=== PATIENT | male | born 1960 | race Caucasian/White ===

== ENCOUNTER 2020-02-17 11:51 | Day surgery (SDC) | payer OTHER, SELFPAY ==
[2020-02-16 12:52] VITALS: BMI 36.6
--- NOTE | 2020-02-16 14:16 | HO.ANESPROP2 ---
Documented by User: Yany Jaquez 02/16/20 14:17 HPI - Anesthesia Eval Consult details Narrative: 59yo M for Colonoscopy [facility] Past Medical History Medical History Atrial fibrillation Elevated cholesterol Hypertension Surgical History Surgical History History of hernia surgery Social History Social History Smoking Status: Never smoker Second Hand Smoke Exposure: No Use of substances other than those prescribed or required for medical reasons: No Advance Directives: No Advance Directives Information Provided: No Advance Directives on File: No Meds Allergies Allergy/AdvReac Type Severity Reaction Status Date / Time No Known Allergies Allergy Verified 02/16/20 14:17 Home Medications Medication Instructions Recorded Confirmed Type atorvastatin 1 tab PO DAILY 02/16/20 02/16/20 History diltiazem HCl 1 cap PO DAILY 02/16/20 02/16/20 History lisinopril 1 tab PO DAILY 02/16/20 02/16/20 History metoprolol tartrate 1 tab PO BID 02/16/20 02/16/20 History metoprolol tartrate 1.5 tab PO BID 02/16/20 02/16/20 History rivaroxaban [Xarelto] 1 tab PO DAILY 02/16/20 02/17/20 History Exam Exam Date and Time: February 16, 2020 1416 Height,Weight and Vital Signs: Height 5 ft 7 in Weight 106.141 kg Assessment and Plan Assessment Anesthesia Assessment: Chart Reviewed Documented by User: Dionne Jarvis 02/17/20 14:58 [facility] Past Medical History Medical History Atrial fibrillation Elevated cholesterol Hypertension Surgical History Surgical History History of hernia surgery Social History Social History Smoking Status: Never smoker Second Hand Smoke Exposure: No Use of substances other than those prescribed or required for medical reasons: No Advance Directives: No Advance Directives Information Provided: No Advance Directives on File: No Meds Allergies Allergy/AdvReac Type Severity Reaction Status Date / Time No Known Allergies Allergy Verified 02/16/20 14:17 Home Medications Medication Instructions Recorded Confirmed Type atorvastatin 1 tab PO DAILY 02/16/20 02/16/20 History diltiazem HCl 1 cap PO DAILY 02/16/20 02/16/20 History lisinopril 1 tab PO DAILY 02/16/20 02/16/20 History metoprolol tartrate 1 tab PO BID 02/16/20 02/16/20 History metoprolol tartrate 1.5 tab PO BID 02/16/20 02/16/20 History rivaroxaban [Xarelto] 1 tab PO DAILY 02/16/20 02/17/20 History Exam Airway Mallampati Class: II TM Dist: >3cm Neck ROM: Full Denture: Upper Heart: RRR Lungs: CTABL Assessment and Plan Assessment Anesthesia Assessment: Anesthesia Plan Discussed (Pt with significant T wave inversion, unable to obtain recent EKG sent to ER for evaluation), Smoking Cess. 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
--- NOTE | 2020-02-17 | ECG_ITS ---
Test Reason : RHYTHM CHANGE Blood Pressure : / mmHG Vent. Rate : 062 BPM Atrial Rate : 053 BPM P-R Int : 000 ms QRS Dur : 084 ms QT Int : 532 ms P-R-T Axes : 000 043 200 degrees QTc Int : [address] & Marked T wave abnormality, consider anterolateral ischemia Prolonged QT Abnormal ECG When compared with ECG of 23-MAR-2013 15:33, Vent. rate has decreased BY 79 BPM T wave inversion more evident in Lateral leads Referred By: Dionne Jarvis Electronically Signed By:ALAN MATHIAS MD
--- NOTE | 2020-02-17 07:36 | MHC.SHP ---
Pre-Procedural Eval Section B Chief Complaint: screening Details of Present Illness: screening, FH colon ca Relevant Family History (Specify if Yes): Yes Relevant Social History: None Present Medications: see Short Stay Collaborative assessment Medical History: Significant History (HTN, Afib) History of Previous Operations: Relevant previous surgery/procedure and date(s) Allergies: Allergies Allergy/AdvReac Type Severity Reaction Status Date / Time No Known Allergies Allergy Verified 02/16/20 14:17 Review of Systems Sugical H&P ROS: Negative: Constitution, Cardiovascular, Respiratory, Neurological, Psychiatric, Hem-Onc, Allergic/Immunologic, Gastrointestinal, Genitourinary, Musculoskeletal, Integumentary, Endocrine and Eyes/Ears/Nose/Throat Exam Surgical H&P Exam: Normal: HEENT, Normal: Heart, Normal: Lungs, Normal: Extremities, Normal: Abdomen, Normal: Skin and Normal: Neurological Plan Diagnosis/Plan: Unchanged Patient has been examined and remains a candidate for the planned procedure
[2020-02-17 12:07] VITALS: BP 135/83; PULSE 82; RESP 18; TEMP 36.4; O2SAT 95
[2020-02-17] MEDS: Lactated Ringers 1,000 ML 100 ML IVCONT (12:23)
--- NOTE | 2020-02-17 12:25 | PC.NURSE ---
ekg ordered by dr rios ? depression
[2020-02-17 13:12] VITALS: BP 142/84; PULSE 65; RESP 18; TEMP 36.9; O2SAT 95; BMI 36.9
--- NOTE | 2020-02-17 13:18 | XR_ITS ---
EXAMINATION: XR CHEST CLINICAL INFORMATION: Weakness. COMPARISON: None TECHNIQUE: Frontal view of the chest was obtained. FINDINGS: Both lungs are fairly well-expanded and clear of acute process. The heart size is enlarged. Pulmonary vascularity is normal. No gross bony abnormality seen. XR/XR chest 1V IMPRESSION: Mild cardiomegaly. No acute process seen
--- NOTE | 2020-02-17 13:21 | ED.GENADULT ---
HPI - General Adult General Chief complaint: General Medical Time Seen by Provider: 02/17/20 13:12 Source: patient, old records reviewed and other (anesthesia/pre-op team) Mode of arrival: other (stretcher) Limitations: no limitations History of Present Illness HPI narrative: 59-year-old male with a past medical history of AFib on Xarelto, high blood pressure, high cholesterol here with abnormal EKG. The patient tells me he was doing a screening colonoscopy today and while he was in preop he had EKG which was abnormal per OR staff and he was referred to the emergency department. The patient denies any chest pain, shortness of breath, cough, weakness, leg swelling. He tells me he has been feeling well for the last few weeks with no symptoms. He is followed by Dr. Tenisha george veneer jointer. Last echo 09/2019 unremarkable. Onset (ago): day(s) Severity: mild Pain Consistency: constant Relieving factors: none Exacerbating factors: none Associated symptoms: denies other symptoms Treatments prior to arrival: none Related Data Home Medications Medication Instructions Recorded Confirmed atorvastatin 1 tab PO DAILY 02/16/20 02/16/20 diltiazem HCl 1 cap PO DAILY 02/16/20 02/16/20 lisinopril 1 tab PO DAILY 02/16/20 02/16/20 metoprolol tartrate 1 tab PO BID 02/16/20 02/16/20 metoprolol tartrate 1.5 tab PO BID 02/16/20 02/16/20 rivaroxaban [Xarelto] 1 tab PO DAILY 02/16/20 02/17/20 Allergies Allergy/AdvReac Type Severity Reaction Status Date / Time No Known Allergies Allergy Verified 02/16/20 14:17 Review of Systems Review of Systems: Yes all other systems are reviewed and are negative Constitutional: Constitutional: Reports no additional constitutional complaints, Denies body ache(s), Denies chills, Denies fever(s), Denies headache(s) and Denies weakness Eyes: Eyes: Reports no additional eye complaints and Denies change in vision ENT: Reports system reviewed and no additional complaints, except as documented, Denies dizziness, Denies headache(s), Denies nasal congestion, Denies nasal discharge and Denies neck pain Cardiovascular: Cardiovascular: Reports no additional cardiovascular complaints, Denies chest pain, Denies leg edema and Denies dyspnea Respiratory: Respiratory: Reports no additional respiratory complaints, Denies cough and Denies dyspnea Gastrointestinal: Gastrointestinal: Reports no additional gastrointestinal complaints, Denies abdominal pain, Denies diarrhea, Denies nausea and Denies vomiting Genitourinary: Genitourinary: Denies urinary incontinence Musculoskeletal: Musculoskeletal: Reports no additional musculoskeletal complaints, Denies back pain, Denies arthralgias, Denies joint swelling, Denies neck pain, Denies numbness and Denies tingling Integumentary/Breasts: Skin/Breast: Reports system reviewed and no additional complaints, except as docu and Denies rash Neurologic: Reports system reviewed and no additional complaints, except as documented, Denies Abnormal speech present, Denies dizziness, Denies headache(s), Denies numbness, Denies tingling and Denies weakness PMFSH Past Medical History Attestation statement: The following information was validated with the patient. Source: old records reviewed and nursing notes reviewed Medical History Atrial fibrillation Elevated cholesterol Hypertension Surgical History History of hernia surgery Social History Social History Smoking Status: Never smoker Second Hand Smoke Exposure: No Use of substances other than those prescribed or required for medical reasons: No Advance Directives: No Advance Directives Information Provided: No Advance Directives on File: No Physical Exam Vital Signs: Vital Signs: Vital Signs Temp Pulse Resp BP Pulse Ox 02/17/20 14:27 64 14 136/82 95 02/17/20 13:12 98.4 F 65 18 142/84 H 95 02/17/20 12:07 97.6 F 82 18 135/83 95 Body Mass Index 36.9 Const: General: cooperative, healthy appearing, comfortable and no acute distress Orientation/consciousness: patient oriented x3 Limitations: no limitations HENMT: Head: Yes normal to inspection Ears: hearing grossly normal bilaterally General nose exam: Normal external nose present Face and sinus: Yes normal facial exam Mouth: Normal oral and palatal mucosa present Throat: Yes posterior oropharynx normal Eyes: General: appearance normal, both eyes and all related structures Pupils: Equal, round and reactive pupils present Neck: Neck: Yes normal visual inspection Chest: Chest palpation & inspection: normal inspection of the chest Resp: Effort & Inspection: normal respiratory effort Auscultation: clear to auscultation bilaterally Cardio: Rate: regular rate Rhythm: regular rhythm Peripheral pulses: Peripheral pulses 2+ throughout GI: Inspection: Yes normal to inspection Palpation (GI): Soft to palpation and nontender Auscultation: normal bowel sounds Back/Spine/Pelvis: Thoracic/Lumbar Spine: thoracic and lumbar spine normal to inspection Skin: General skin exam: no rashes or lesions noted Neuro: General: patient oriented x3, no focal motor deficits and normal sensation to monofilament Cranial nerves: Yes Equal, round and reactive pupils present Cognition (Neuro): normal cognition Speech: No Abnormal speech present Gait exam (Neuro): Normal gait present Motor exam (neuro): 5/5 motor strength present throughout Extrem: General: Yes normal to inspection Course Course Course Narrative: 59-year-old male here with abnormal EKG from preop. Patient was scheduled for an outpatient colonoscopy this morning. He completed a colonoscopy prep last night. He has no complaints of chest pain, shortness of breath today or in the past few weeks. His EKG shows AFib with a rate of 62 with T-wave inversions V2 through V6. He does have a history of AFib. These inversions appear new when compared to EKG from 03/23/2013. Will check labs including electrolytes, troponin, EKG and chest x-ray. 1446- I was able to get the EKG from Dr. Steven office. EKG looks unchanged when compared to today with the exception of there is a solitary new depression in V2 which is not there when compared from the EKG from June 24, 2019. I spoke to Dr. Steven. As long as the patient has no symptoms and feels well plan to continue with procedure. These are not new EKG findings today. Discussed with OR team and patient. Plan for discharge from ED and back to pre-op for surgical procedure. Labs reviewed and unremarkable. CXR negative for underlying process. Medical Decision Making Lab Data Result diagrams: 02/17/20 14:34 02/17/20 14:34 Labs: Lab Results 02/17/20 02/17/20 02/17/20 Range/Units 14:34 14:34 14:34 WBC 8.0 (4.8-10.8) X10*3/uL RBC 4.52 L (4.60-5.80) X10*6/uL Hgb 15.1 (14.0-18.0) g/dl Hct 45.0 (42-52) % MCV 99.6 H (80-98) fL MCH 33.4 H (27.0-33.0) pg MCHC 33.6 (31.0-36.0) g/dl RDW 12.7 (11.0-16.0) % Plt Count 174 (160-400) X10*3/uL MPV 11.4 (9.4-12.4) fL Immature Gran % (Auto) 0.1 (0.0-0.4) % Neut % (Auto) 70.3 (45-73) % Lymph % (Auto) 21.0 (20-40) % [place] % (Auto) 7.5 (2-11) % Eos % (Auto) 1.0 (0-4) % Baso % (Auto) 0.1 (0-2) % Lymph # (Auto) 1.7 (1.2-4.9) X10*3/uL [place] # (Auto) 0.6 (0.1-1.2) X10*3/uL Eos # (Auto) 0.1 (0.0-0.4) X10*3/uL Baso # (Auto) 0.0 (0.0-0.2) X10*3/uL Abs Immat Gran (auto) 0.01 (0.00-0.03) X10*3/uL Absolute Neuts (auto) 5.6 (2.0-8.3) X10*3/uL Absolute Nucleated RBC 0.000 (0.0-0.012) X10*3/uL Nucleated RBC % (auto) 0.0 (0.0-0.2) /100WBC PT 12.6 (10.8-13.0) SEC INR 1.1 (0.9-1.1) Sodium 140 (135-145) mmol/L Potassium 5.0 (3.3-5.1) mmol/l Chloride 105 (96-108) mmol/L Carbon Dioxide 27 (22-29) mmol/L Anion Gap 13 (12-20) BUN 11 (9-16) mg/dL Creatinine 1.14 (0.5-1.4) mg/dL Estim Creat Clear Calc 81.3 Estimated GFR > 60 Random Glucose 103 (60-115) mg/dL Calcium 9.0 (8.4-10.2) mg/dL Magnesium 2.1 (1.6-2.6) mg/dL Total Bilirubin 1.4 H (0.0-1.0) mg/dL Direct Bilirubin 0.5 (0.0-0.5) mg/dL AST 25 (5-37) U/L ALT 28 (0-40) U/L Alkaline Phosphatase 79 (39-117) U/L Troponin I High Sens (<3.5-35.0) ng/L Total Protein 6.9 (6.5-8.0) g/dL Albumin 4.4 (3.5-5.0) g/dL 02/17/20 02/17/20 Range/Units 14:34 14:34 WBC (4.8-10.8) X10*3/uL RBC (4.60-5.80) X10*6/uL Hgb (14.0-18.0) g/dl Hct (42-52) % MCV (80-98) fL MCH (27.0-33.0) pg MCHC (31.0-36.0) g/dl RDW (11.0-16.0) % Plt Count (160-400) X10*3/uL MPV (9.4-12.4) fL Immature Gran % (Auto) (0.0-0.4) % Neut % (Auto) (45-73) % Lymph % (Auto) (20-40) % [place] % (Auto) (2-11) % Eos % (Auto) (0-4) % Baso % (Auto) (0-2) % Lymph # (Auto) (1.2-4.9) X10*3/uL [place] # (Auto) (0.1-1.2) X10*3/uL Eos # (Auto) (0.0-0.4) X10*3/uL Baso # (Auto) (0.0-0.2) X10*3/uL Abs Immat Gran (auto) (0.00-0.03) X10*3/uL Absolute Neuts (auto) (2.0-8.3) X10*3/uL Absolute Nucleated RBC (0.0-0.012) X10*3/uL Nucleated RBC % (auto) (0.0-0.2) /100WBC PT (10.8-13.0) SEC INR (0.9-1.1) Sodium (135-145) mmol/L Potassium (3.3-5.1) mmol/l Chloride (96-108) mmol/L Carbon Dioxide (22-29) mmol/L Anion Gap (12-20) BUN (9-16) mg/dL Creatinine (0.5-1.4) mg/dL Estim Creat Clear Calc Estimated GFR Random Glucose (60-115) mg/dL Calcium 9.3 (8.4-10.2) mg/dL Magnesium (1.6-2.6) mg/dL Total Bilirubin (0.0-1.0) mg/dL Direct Bilirubin (0.0-0.5) mg/dL AST (5-37) U/L ALT (0-40) U/L Alkaline Phosphatase (39-117) U/L Troponin I High Sens 8.5 (<3.5-35.0) ng/L Total Protein (6.5-8.0) g/dL Albumin (3.5-5.0) g/dL Imaging Data Chest x-ray: Radiologist's impression: EXAMINATION: XR CHEST CLINICAL INFORMATION: Weakness. COMPARISON: None TECHNIQUE: Frontal view of the chest was obtained. FINDINGS: Both lungs are fairly well-expanded and clear of acute process. The heart size is enlarged. Pulmonary vascularity is normal. No gross bony abnormality seen. XR/XR chest 1V IMPRESSION: Mild cardiomegaly. No acute process seen ECG Data Attestation: I personally reviewed and interpreted this ECG as follows: Interpretation: patient is in AFib with a rate of 62 he has inverted T-waves in leads V2, V3, V4, V5, V6. NO ST elevations. Worsened when compared to EKG 03/23/13 Discharge Plan Discharge Patient Disposition: Home, Self-Care Discharge Medications: No Action atorvastatin 40 mg tablet 1 tab PO DAILY RF: 0 metoprolol tartrate 100 mg tablet 1 tab PO BID RF: 0 lisinopril 20 mg tablet 1 tab PO DAILY RF: 0 diltiazem HCl 300 mg capsule,extended release 24 hr 1 cap PO DAILY RF: 0 metoprolol tartrate 50 mg tablet 1.5 tab PO BID RF: 0 Xarelto 20 mg tablet 1 tab PO DAILY RF: 0 Patient Instructions: A-fib (Atrial Fibrillation) (ED)
--- NOTE | 2020-02-17 13:22 | PC.NURSE ---
02/17/[address] lazaro rhythm changes. ekg ordered pt denies c/o denies sob pwd vss. 02/17/2020 1220 pt denies c/p ekg completed denies sob, call to dr noe office for recent ekg and echo which patient sts had 6mths ago. 148/84, 70, 18 96 ra. 02/17/[address] MOSS [address] DR LAZARO AT BEDSIDE PT DENIES PAIN PWD DENIES SOB RHYTHMS REMAINS THE SAME PATIENT ASYMPTOMATIC
--- NOTE | 2020-02-17 13:28 | PC.NURSE ---
FEB 17, 2020 1255 PT WILL GO TO ED SILVA C/P PWD NURSES TO NURSE AND DR MOSS SPOKE TO ED PHYSICIAN. PT AWARE OF PLAN OF CARE DR LAZARO SPOKE TO SON CONCERNING PT CARE PLAN, PT ALSO AWARE. STS HE FEELS FINE. PT TO ED 1300 VITAL SIGNS PRIOR 140/74-75 [id number] NO PAIN. PT TRANFERRED WITH TWO RN ON A MONITOR
[2020-02-17 14:27] VITALS: BP 136/82; PULSE 64; RESP 14; O2SAT 95
--- NOTE | 2020-02-17 14:30 | PC.NURSE ---
PT REPORTS NO PAIN AND NO SOB HE REMAINS IN A NS ON THE MONITOR AWAITING LABS
[2020-02-17 14:40] LABS: MANUAL DIFF FLAG NO
[2020-02-17 14:41] LABS: Basophils Percent Auto 0.1 % (0-2); Eosinophils Absolute Auto 0.1 X10*3/uL (0.0-0.4); Hemoglobin 15.1 g/dl (14.0-18.0); Imm Gran Abs Auto 0.01 X10*3/uL (0.00-0.03); Imm Gran Pct Auto 0.1 % (0.0-0.4); Lymphocytes Absolute Auto 1.7 X10*3/uL (1.2-4.9); Mean Corpuscular HGB Conc 33.6 g/dl (31.0-36.0); Mean Corpuscular Hemoglobin 33.4 pg (27.0-33.0); Mean Corpuscular Volume 99.6 fL (80-98); Mean Platelet Volume 11.4 fL (9.4-12.4); Monocytes Absolute Auto 0.6 X10*3/uL (0.1-1.2); Monocytes Percent Auto 7.5 % (2-11); Neutrophils Absolute Auto 5.6 X10*3/uL (2.0-8.3); Neutrophils Percent Auto 70.3 % (45-73); Platelet Count 174 X10*3/uL (160-400); Red Blood Count 4.52 X10*6/uL (4.60-5.80); Red Cell Distribution Width 12.7 % (11.0-16.0)
[2020-02-17 14:46] LABS: INTERNATIONAL NORM RATIO 1.1 (0.9-1.1); Prothrombin Time 12.6 SEC (10.8-13.0)
[2020-02-17 14:58] LABS: Calcium 9.3 mg/dL (8.4-10.2)
[2020-02-17 15:05] LABS: Alanine Aminotransferase 28 U/L (0-40); Albumin Level 4.4 g/dL (3.5-5.0); Alkaline Phosphatase 79 U/L (39-117); Anion Gap 13 (12-20); Aspartate Amino Transferase 25 U/L (5-37); Bilirubin Direct 0.5 mg/dL (0.0-0.5); Bilirubin Total 1.4 mg/dL (0.0-1.0); Blood Urea Nitrogen 11 mg/dL (9-16); Carbon Dioxide 27 mmol/L (22-29); Chloride 105 mmol/L (96-108); Creatinine Clr Calc Pharmacy 81.3; Estimated Glomerular Filt Rate > 60; Glucose Random 103 mg/dL (60-115); Magnesium 2.1 mg/dL (1.6-2.6); Sodium 140 mmol/L (135-145); Total Protein 6.9 g/dL (6.5-8.0)
[2020-02-17 15:12] LABS: Troponin-I High Sensitivity 8.5 ng/L (<3.5-35.0)
--- NOTE | 2020-02-17 15:14 | PC.NURSE ---
PT WAS BROUGHT BACK TO THE OR FOR SCHEDULED PROCEDURE
[2020-02-17 15:55] VITALS: BP 110/50; PULSE 68; RESP 18; TEMP 37.1; O2SAT 95
[2020-02-17 16:10] VITALS: BP 121/65; PULSE 71; RESP 18; O2SAT 96
[2020-02-17 16:23] VITALS: PULSE 67; RESP 20; O2SAT 97
--- NOTE | 2020-02-17 21:20 | OP_ITS ---
SURGEON: Matty Aleman MD INDICATIONS: Colon cancer screening and family history of colon cancer. PREOPERATIVE DIAGNOSIS: POSTOPERATIVE DIAGNOSIS: PROCEDURE PERFORMED: Colonoscopy to the terminal ileum with snare polypectomy and biopsy. ESTIMATED BLOOD LOSS: COMPLICATIONS: ANESTHESIA: ASSISTANTS: SPECIMENS: MEDICATIONS: Monitored anesthesia care. DESCRIPTION OF PROCEDURE: History and physical performed. The risks and benefits of the procedure were explained to the patient. Informed consent was obtained. The patient was placed in the left lateral decubitus position. A digital rectal exam was performed and was found to be normal. The Olympus pediatric video colonoscope was introduced into the rectum and advanced to the cecum without difficulty. The cecum was identified by transillumination, palpation, and identification of ileocecal valve. Examination was performed and the scope was removed. He tolerated the procedure well and was taken to recovery area in stable condition. FINDINGS: The terminal ileum was normal. The visualized colonic mucosa was normal. In the terminal ileum, there was a focal area of nodular lymphoid hyperplasia measuring approximately 2 mm. A total of 4 colon polyps were identified and removed. The first was located at 70 cm from the anal verge. It was removed with biopsy forceps measuring less than 5 mm. Three others were at 60, 50, and 20 cm. All measured less than 10 mm and were removed with a snare. No other polyps were identified. There was mild sigmoid diverticulosis. Retroflexed examination showed small internal hemorrhoids. IMPRESSION: Colon polyps. RECOMMENDATION: Follow up the biopsy results. MD KRISTINA Lucas/VINNIE / [id number]
== END 2020-02-17 23:59 | disposition home or self-care (01) ==
LOC: HO.SSS 12:30 → HO.ED 13:12 → HO.SSS 15:18
PROVIDERS: Nurse Practitioner Family; PCP Internal Medicine; Visit Provider Internal Medicine Gastroenterology
DX: Z12.11 Encounter for screening for malignant neoplasm of colon (principal); Z80.0 Family history of malignant neoplasm of digestive organs; D12.4 Benign neoplasm of descending colon; D12.5 Benign neoplasm of sigmoid colon; K57.30 Diverticulosis of large intestine without perforation or abscess without bleeding; K64.8 Other hemorrhoids; I10 Essential (primary) hypertension; R94.31 Abnormal electrocardiogram [ECG] [EKG]; R53.1 Weakness; I48.91 Unspecified atrial fibrillation; I51.7 Cardiomegaly; E78.00 Pure hypercholesterolemia, unspecified; Z79.01 Long term (current) use of anticoagulants; Z79.899 Other long term (current) drug therapy
CPT/HCPCS: 45385; 45380; 36415; 71045; 80048; 80076; 82310; 83735; 84484; 85025; 85610; 88305; 93005

== ENCOUNTER 2020-03-17 16:23 | Emergency (ER) | payer OTHER, SELFPAY ==
[2020-03-17 16:36] VITALS: BP 165/97; PULSE 95; RESP 16; TEMP 36.7; O2SAT 98; BMI 38.4
[2020-03-17 18:40] VITALS: PULSE 91; RESP 16
[2020-03-17 19:28] VITALS: BP 173/105; PULSE 99
[2020-03-17] MEDS: Metoprolol Tartrate 5 MG/5 ML VIAL IVPUSH (19:28)
[2020-03-17 19:33] VITALS: BP 153/111; PULSE 104; RESP 18
[2020-03-17 19:41] VITALS: BP 157/93; PULSE 99; RESP 18
[2020-03-17 19:58] LABS: MANUAL DIFF FLAG NO
[2020-03-17 20:10] LABS: Basophils Percent Auto 0.1 % (0-2); Eosinophils Absolute Auto 0.1 X10*3/uL (0.0-0.4); Eosinophils Percent Auto 1.2 % (0-4); Hematocrit 43.5 % (42-52); Hemoglobin 14.6 g/dl (14.0-18.0); Imm Gran Abs Auto 0.01 X10*3/uL (0.00-0.03); Imm Gran Pct Auto 0.1 % (0.0-0.4); Lymphocytes Absolute Auto 1.8 X10*3/uL (1.2-4.9); Lymphocytes Percent Auto 21.9 % (20-40); Mean Corpuscular HGB Conc 33.6 g/dl (31.0-36.0); Mean Corpuscular Volume 98.2 fL (80-98); Mean Platelet Volume 12.4 fL (9.4-12.4); Monocytes Absolute Auto 0.6 X10*3/uL (0.1-1.2); Monocytes Percent Auto 6.7 % (2-11); Neutrophils Absolute Auto 5.8 X10*3/uL (2.0-8.3); Platelet Count 148 X10*3/uL (160-400); Red Blood Count 4.43 X10*6/uL (4.60-5.80); Red Cell Distribution Width 12.2 % (11.0-16.0); White Blood Count 8.3 X10*3/uL (4.8-10.8)
[2020-03-17 20:25] LABS: Anion Gap 13 (12-20); Blood Urea Nitrogen 18 mg/dL (9-16); Carbon Dioxide 27 mmol/L (22-29); Chloride 106 mmol/L (96-108); Creatinine Clr Calc Pharmacy 93.3; Estimated Glomerular Filt Rate > 60; Glucose Random 87 mg/dL (60-115); Potassium 4.2 mmol/l (3.3-5.1); Sodium 142 mmol/L (135-145)
[2020-03-17 20:41] LABS: Troponin-I High Sensitivity 19.9 ng/L (<3.5-35.0)
--- NOTE | 2020-03-17 20:47 | ED.ARRPALP ---
HPI - Arrhythmia/Palpitations General Chief Complaint: Arrhythmia/Palpitations Stated Complaint: increase in afib Time Seen by Provider: 03/17/20 18:54 Source: patient Mode of arrival: ambulatory Limitations: no limitations History of Present Illness HPI narrative: Patient's history of atrial fibrillation which is all the time for last 5 years on Xarelto Cardizem 300 mg daily metoprolol 100 mg twice daily today around 1600 patient noticed palpitation with heart rate in 120s no dizziness no shortness of breath no blurred vision headache when he arrived his heart rate was fluctuating between 96-115 blood pressure 165/97 patient asymptomatic otherwise. No chest pain complaint: rapid heart beat Onset (ago): hour(s) (1600) Duration: constant Severity: mild Context: occurred during rest Arrhythmia history: atrial fibrillation Associated symptoms: denies other symptoms Related Data Home Medications Medication Instructions Recorded Confirmed Xarelto 1 tab PO DAILY 02/16/20 02/17/20 atorvastatin 1 tab PO DAILY 02/16/20 02/16/20 diltiazem HCl 1 cap PO DAILY 02/16/20 02/16/20 lisinopril 1 tab PO DAILY 02/16/20 02/16/20 metoprolol tartrate 1 tab PO BID 02/16/20 02/16/20 metoprolol tartrate 1.5 tab PO BID 02/16/20 02/16/20 Allergies Allergy/AdvReac Type Severity Reaction Status Date / Time No Known Allergies Allergy Verified 02/16/20 14:17 Review of Systems Review of Systems: REVIEW OF SYSTEMS: Pertinent positives and negatives are stated above in the history. GEN: no fevers, chills, fatigue HEENT: no nasal congestion, sore throat, ear pain NEURO: no headache, dizziness, focal weakness PULM: no cough, shortness of breath CV: no chest pain, LE edema ABD: no abdominal pain, nausea, vomiting, diarrhea : no dysuria, urgency, frequency SKIN: no rash ROS otherwise negative x 10 PMFSH Past Medical History Medical History Atrial fibrillation Elevated cholesterol Hypertension Surgical History History of hernia surgery Social History Social History Smoking Status: Never smoker Second Hand Smoke Exposure: No Advance Directives: No Advance Directives Information Provided: No Physical Exam Vital Signs: Vital Signs: Last Vital Signs Temp 98.1 F 03/17/20 16:36 Pulse 99 03/17/20 19:41 Resp 18 03/17/20 19:41 BP 157/93 H 03/17/20 19:41 Pulse Ox 98 03/17/20 16:36 Body Mass Index 38.4 Appearance: Alert. Oriented X3. No acute distress. Eyes: Pupils equal, round and reactive to light. ENT: Pharynx normal. Neck: Normal inspection. Neck supple. CVS: Irregular irregular tachycardia no murmur no gallop . Pulses normal. Respiratory: No respiratory distress. Breath sounds normal. Abdomen: Soft and nontender. Skin: Skin warm and dry. Normal skin color. Normal skin turgor. Extremities: No lower extremity edema. Good range of movement Neuro: Oriented X 3. No motor deficit. No sensory deficit. Course Course Course Narrative: Patient id continues atrial fibrillation on calcium channel yarely and beta yarely rate usually controlled today patient heart rate was fluctuating between 96 and 120 asymptomatic. Case discussed with patient's grain elevator clerk Dr. Steven advised to increase the dose of Lopressor to 150 mg twice daily and will see him in the office MDM - Arrhythmia/Palpitations Differential Diagnosis Differential diagnosis: Likely artial fibrillation Medical Records Attestation: I reviewed the patient's medical records. Lab Data Attestation: I reviewed the patient's lab results. Result diagrams: 03/17/20 19:48 03/17/20 19:48 Labs: Lab Results 03/17/20 03/17/20 03/17/20 Range/Units 19:48 19:48 19:48 WBC 8.3 (4.8-10.8) X10*3/uL RBC 4.43 L (4.60-5.80) X10*6/uL Hgb 14.6 (14.0-18.0) g/dl Hct 43.5 (42-52) % MCV 98.2 H (80-98) fL MCH 33.0 (27.0-33.0) pg MCHC 33.6 (31.0-36.0) g/dl RDW 12.2 (11.0-16.0) % Plt Count 148 L (160-400) X10*3/uL MPV 12.4 (9.4-12.4) fL Immature Gran % (Auto) 0.1 (0.0-0.4) % Neut % (Auto) 70.0 (45-73) % Lymph % (Auto) 21.9 (20-40) % Snyder % (Auto) 6.7 (2-11) % Eos % (Auto) 1.2 (0-4) % Baso % (Auto) 0.1 (0-2) % Lymph # (Auto) 1.8 (1.2-4.9) X10*3/uL Snyder # (Auto) 0.6 (0.1-1.2) X10*3/uL Eos # (Auto) 0.1 (0.0-0.4) X10*3/uL Baso # (Auto) 0.0 (0.0-0.2) X10*3/uL Abs Immat Gran (auto) 0.01 (0.00-0.03) X10*3/uL Absolute Neuts (auto) 5.8 (2.0-8.3) X10*3/uL Absolute Nucleated RBC 0.000 (0.0-0.012) X10*3/uL Nucleated RBC % (auto) 0.0 (0.0-0.2) /100WBC Hold Blue Top SEE NOTE Sodium (135-145) mmol/L Potassium (3.3-5.1) mmol/l Chloride (96-108) mmol/L Carbon Dioxide (22-29) mmol/L Anion Gap (12-20) BUN (9-16) mg/dL Creatinine (0.5-1.4) mg/dL Estim Creat Clear Calc Estimated GFR Random Glucose (60-115) mg/dL Calcium (8.4-10.2) mg/dL Magnesium 2.0 (1.6-2.6) mg/dL Troponin I High Sens (<3.5-35.0) ng/L 03/17/20 03/17/20 Range/Units 19:48 19:48 WBC (4.8-10.8) X10*3/uL RBC (4.60-5.80) X10*6/uL Hgb (14.0-18.0) g/dl Hct (42-52) % MCV (80-98) fL MCH (27.0-33.0) pg MCHC (31.0-36.0) g/dl RDW (11.0-16.0) % Plt Count (160-400) X10*3/uL MPV (9.4-12.4) fL Immature Gran % (Auto) (0.0-0.4) % Neut % (Auto) (45-73) % Lymph % (Auto) (20-40) % Snyder % (Auto) (2-11) % Eos % (Auto) (0-4) % Baso % (Auto) (0-2) % Lymph # (Auto) (1.2-4.9) X10*3/uL Snyder # (Auto) (0.1-1.2) X10*3/uL Eos # (Auto) (0.0-0.4) X10*3/uL Baso # (Auto) (0.0-0.2) X10*3/uL Abs Immat Gran (auto) (0.00-0.03) X10*3/uL Absolute Neuts (auto) (2.0-8.3) X10*3/uL Absolute Nucleated RBC (0.0-0.012) X10*3/uL Nucleated RBC % (auto) (0.0-0.2) /100WBC Hold Blue Top Sodium 142 (135-145) mmol/L Potassium 4.2 (3.3-5.1) mmol/l Chloride 106 (96-108) mmol/L Carbon Dioxide 27 (22-29) mmol/L Anion Gap 13 (12-20) BUN 18 H D (9-16) mg/dL Creatinine 0.97 (0.5-1.4) mg/dL Estim Creat Clear Calc 93.3 Estimated GFR > 60 Random Glucose 87 (60-115) mg/dL Calcium 9.0 (8.4-10.2) mg/dL Magnesium (1.6-2.6) mg/dL Troponin I High Sens 19.9 D (<3.5-35.0) ng/L ECG Data Attestation: I personally reviewed and interpreted this ECG as follows: ECG interpretation date: 03/17/20 Prior ECG tracings: available for review Interpretation: Atrial fibrillation ventricular rate 89 LVH with T inversion in lateral leads similar to that in the previous EKG. Impression atrial fibrillation no acute ST T wave changes Discharge Plan Discharge Clinical Impression: Atrial fibrillation Patient Disposition: Home, Self-Care Instructions: Gonzaelzfib (Atrial Fibrillation) (ED) Additional Instructions: Continue taking medications. Increase the dose of metoprolol to 150 mg twice daily. Call your grain elevator clerk tomorrow for further evaluation and management Prescriptions: No Action atorvastatin 40 mg tablet 1 tab PO DAILY RF: 0 metoprolol tartrate 100 mg tablet 1 tab PO BID RF: 0 lisinopril 20 mg tablet 1 tab PO DAILY RF: 0 diltiazem HCl 300 mg capsule,extended release 24 hr 1 cap PO DAILY RF: 0 metoprolol tartrate 50 mg tablet 1.5 tab PO BID RF: 0 Xarelto 20 mg tablet 1 tab PO DAILY RF: 0 Hold Instructions: Resume on 02/18/20. resume in am
[2020-03-17 21:13] VITALS: BP 136/90; PULSE 90; RESP 18; O2SAT 98
== END 2020-03-17 21:00 | disposition home or self-care (01) ==
PROVIDERS: Emergency Provider Internal Medicine; PCP Internal Medicine
DX: I48.91 Unspecified atrial fibrillation (principal); I10 Essential (primary) hypertension; Z79.01 Long term (current) use of anticoagulants
CPT/HCPCS: 36415; 80048; 83735; 84484; 85025; 96374; 99285

== ENCOUNTER 2020-05-30 08:13 | Outpatient (REF) | payer OTHER, SELFPAY ==
[2020-05-30 08:49] LABS: MANUAL DIFF FLAG NO
[2020-05-30 09:00] LABS: Basophils Percent Auto 0.2 % (0-2); Eosinophils Absolute Auto 0.2 X10*3/uL (0.0-0.4); Eosinophils Percent Auto 2.3 % (0-4); Hematocrit 44.3 % (42-52); Hemoglobin 14.7 g/dl (14.0-18.0); Imm Gran Abs Auto 0.01 X10*3/uL (0.00-0.03); Imm Gran Pct Auto 0.2 % (0.0-0.4); Lymphocytes Absolute Auto 2.5 X10*3/uL (1.2-4.9); Lymphocytes Percent Auto 39.2 % (20-40); Mean Corpuscular HGB Conc 33.2 g/dl (31.0-36.0); Mean Corpuscular Volume 96.3 fL (80-98); Mean Platelet Volume 11.8 fL (9.4-12.4); Monocytes Absolute Auto 0.5 X10*3/uL (0.1-1.2); Monocytes Percent Auto 7.9 % (2-11); Neutrophils Absolute Auto 3.2 X10*3/uL (2.0-8.3); Neutrophils Percent Auto 50.2 % (45-73); Platelet Count 201 X10*3/uL (160-400); Red Cell Distribution Width 11.9 % (11.0-16.0); White Blood Count 6.4 X10*3/uL (4.8-10.8)
[2020-05-30 09:03] LABS: Glucose Urine UA NEG (NEG); Leukocyte Esterase Urine NEG (NEG); Nitrite Urine NEG (NEG); Urine Blood NEG (NEG); Urine Ketones NEG (NEG); Urine Protein NEG (NEG-TRACE)
[2020-05-30 09:05] LABS: Appearance Urine CLEAR; Color Urine YELLOW
[2020-05-30 09:39] LABS: Alanine Aminotransferase 20 U/L (0-40); Albumin Level 4.1 g/dL (3.5-5.0); Alkaline Phosphatase 84 U/L (39-117); Anion Gap 12 (12-20); Aspartate Amino Transferase 20 U/L (5-37); Bilirubin Total 1.2 mg/dL (0.0-1.0); Blood Urea Nitrogen 14 mg/dL (9-16); Carbon Dioxide 30 mmol/L (22-29); Chloride 103 mmol/L (96-108); Cholesterol 121 mg/dL; Estimated Glomerular Filt Rate > 60; Glucose Fasting 113 mg/dL (60-99); HDL Cholesterol 37 mg/dL; LDL Cholesterol Calculated 66 mg/dl; Potassium 4.6 mmol/L (3.3-5.1); Sodium 140 mmol/L (135-145); Total Protein 6.7 g/dL (6.5-8.0); Triglycerides 92 mg/dL
[2020-05-30 10:03] LABS: Prostate Specific Antigen 0.41 ng/mL (<0.05-4.0)
== END 2020-05-30 08:14 | disposition home or self-care (01) ==
LOC: HO.LAB 08:13
PROVIDERS: PCP Internal Medicine; Visit Provider Internal Medicine
DX: Z00.00 Encounter for general adult medical examination without abnormal findings (principal); Z12.5 Encounter for screening for malignant neoplasm of prostate
CPT/HCPCS: 36415; 80053; 80061; 81003; 84153; 85025

== ENCOUNTER 2022-02-10 08:47 | Outpatient (REF) | payer OTHER, SELFPAY ==
[2022-02-10 09:09] LABS: MANUAL DIFF FLAG NO
[2022-02-10 10:38] LABS: Basophils Percent Auto 0.2 % (0-2); Eosinophils Absolute Auto 0.2 X10*3/uL (0.0-0.4); Eosinophils Percent Auto 2.4 % (0-4); Hematocrit 45.7 % (42.0-52.0); Imm Gran Abs Auto 0.01 X10*3/uL (0.00-0.03); Imm Gran Pct Auto 0.2 % (0.0-0.4); Lymphocytes Absolute Auto 1.8 X10*3/uL (1.2-4.9); Lymphocytes Percent Auto 28.7 % (20-40); Mean Corpuscular HGB Conc 32.8 g/dl (31.0-36.0); Mean Corpuscular Hemoglobin 32.1 pg (27.0-33.0); Mean Corpuscular Volume 97.6 fL (80.0-98.0); Mean Platelet Volume 12.3 fL (9.4-12.4); Monocytes Absolute Auto 0.8 X10*3/uL (0.1-1.2); Monocytes Percent Auto 11.8 % (2-11); Neutrophils Absolute Auto 3.6 x10*3/uL (2.0-8.3); Neutrophils Percent Auto 56.7 % (45-73); Platelet Count 179 X10*3/uL (160-400); Red Blood Count 4.68 X10*6/uL (4.60-5.80); Red Cell Distribution Width 12.9 % (11.0-16.0); White Blood Count 6.4 X10*3/uL (4.8-10.8)
[2022-02-10 11:08] LABS: Alanine Aminotransferase 16 U/L (0-40); Albumin Level 4.3 g/dL (3.5-5.0); Alkaline Phosphatase 95 U/L (39-117); Anion Gap 16 (12-20); Aspartate Amino Transferase 22 U/L (5-37); Blood Urea Nitrogen 21 mg/dL (9-16); Calcium 9.5 mg/dL (8.4-10.2); Carbon Dioxide 27 mmol/L (22-29); Chloride 104 mmol/L (96-108); Cholesterol 114 mg/dL; Estimated Glomerular Filt Rate 59; Glucose Fasting 117 mg/dL (60-99); HDL Cholesterol 38 mg/dL; LDL Cholesterol Calculated 66 mg/dl; Potassium 5.6 mmol/L (3.3-5.1); Sodium 141 mmol/L (135-145); Total Protein 7.2 g/dL (6.5-8.0); Triglycerides 50 mg/dL
[2022-02-10 11:32] LABS: Prostate Specific Antigen 0.42 ng/mL (<0.05-4.0)
== END 2022-02-10 08:48 | disposition home or self-care (01) ==
LOC: HO.LAB 08:47
PROVIDERS: PCP Internal Medicine; Visit Provider Internal Medicine
DX: I10 Essential (primary) hypertension (principal); I48.91 Unspecified atrial fibrillation; E78.00 Pure hypercholesterolemia, unspecified; R35.1 Nocturia; Z12.5 Encounter for screening for malignant neoplasm of prostate
CPT/HCPCS: 36415; 80053; 80061; 84153; 85025

== ENCOUNTER 2022-03-16 15:25 | Outpatient (REF) | payer OTHER, SELFPAY ==
[2022-03-16 16:20] LABS: Anion Gap 10 (12-20); Blood Urea Nitrogen 16 mg/dL (9-16); Calcium 9.6 mg/dL (8.4-10.2); Carbon Dioxide 31 mmol/L (22-29); Chloride 101 mmol/L (96-108); Estimated Glomerular Filt Rate 57; Glucose Random 93 mg/dL (60-115); Potassium 5.2 mmol/L (3.3-5.1); Sodium 137 mmol/L (135-145)
== END 2022-03-16 15:26 | disposition home or self-care (01) ==
LOC: HO.LAB 15:25
PROVIDERS: PCP Internal Medicine; Visit Provider Internal Medicine
DX: I12.9 Hypertensive chronic kidney disease with stage 1 through stage 4 chronic kidney disease, or unspecified chronic kidney disease (principal); N18.9 Chronic kidney disease, unspecified
CPT/HCPCS: 36415; 80048

== ENCOUNTER 2022-10-11 15:15 | Outpatient (REF) | payer OTHER, SELFPAY ==
[2022-10-11 16:17] LABS: Estimated Average Glucose 117 mg/dL; Hemoglobin A1c % 5.7 %
[2022-10-11 16:35] LABS: Alanine Aminotransferase 32 U/L (0-40); Alkaline Phosphatase 75 U/L (39-117); Anion Gap 12 (12-20); Aspartate Amino Transferase 26 U/L (5-37); Bilirubin Total 1.3 mg/dL (0.0-1.0); Blood Urea Nitrogen 16 mg/dL (9-16); Calcium 10.2 mg/dL (8.4-10.2); Carbon Dioxide 28 mmol/L (22-29); Chloride 105 mmol/L (96-108); Estimated Glomerular Filt Rate > 60; Glucose Random 72 mg/dL (60-115); Potassium 4.2 mmol/L (3.3-5.1); Sodium 141 mmol/L (135-145); Total Protein 6.7 g/dL (6.5-8.0)
== END 2022-10-11 15:16 | disposition home or self-care (01) ==
LOC: HO.LAB 15:15
PROVIDERS: PCP Internal Medicine; Visit Provider Internal Medicine
DX: I48.91 Unspecified atrial fibrillation (principal); R73.03 Prediabetes; I12.9 Hypertensive chronic kidney disease with stage 1 through stage 4 chronic kidney disease, or unspecified chronic kidney disease; N18.9 Chronic kidney disease, unspecified
CPT/HCPCS: 36415; 80053; 83036

== ENCOUNTER 2023-09-22 13:13 | Emergency (ER) | payer OTHER, SELFPAY ==
--- NOTE | ~2023-09-22 | XR_ITS ---
EXAMINATION: XR SHOULDER, LEFT CLINICAL INFORMATION: Shoulder pain COMPARISON: None available. TECHNIQUE: AP external rotation, Grashey, scapular Y, and axillary views of the left shoulder. FINDINGS: The bones and soft tissues are normal. No fracture. Glenohumeral and acromioclavicular alignment is anatomic with normal joint space. No abnormal soft tissue calcifications. XR/XR shoulder LT min 2V IMPRESSION: Normal left shoulder.
[2023-09-22 13:21] VITALS: BP 150/90; O2SAT 95
[2023-09-22 13:58] VITALS: BP 166/95; PULSE 68; RESP 17; TEMP 36.2; O2SAT 97; BMI 37.3
--- NOTE | 2023-09-22 14:03 | ECG_ITS ---
Test Reason : LEFT SHOULDER PAIN Blood Pressure : / mmHG Vent. Rate : 078 BPM Atrial Rate : 000 BPM P-R Int : 000 ms QRS Dur : 090 ms QT Int : 528 ms P-R-T Axes : 000 050 234 degrees QTc Int : 601 ms Atrial fibrillation Minimal voltage criteria for LVH, may be normal variant ( Sokolow-Quintana ) ST & Marked T wave abnormality, consider anterolateral ischemia Prolonged QT Abnormal ECG When compared with ECG of 17-FEB-2020 13:28, T wave inversion more evident in Inferior leads QT has lengthened Referred By: Michael Jha Electronically Signed By:DANA QUINN
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
[2023-09-22 14:40] LABS: MANUAL DIFF FLAG NO
[2023-09-22 14:45] LABS: Basophils Percent Auto 0.1 % (0-2); Eosinophils Absolute Auto 0.1 X10*3/uL (0.0-0.4); Eosinophils Percent Auto 1.1 % (0-4); Hematocrit 44.8 % (42.0-52.0); Hemoglobin 15.3 g/dl (14.0-18.0); Imm Gran Abs Auto 0.03 X10*3/uL (0.00-0.03); Imm Gran Pct Auto 0.4 % (0.0-0.4); Lymphocytes Absolute Auto 1.3 X10*3/uL (1.2-4.9); Lymphocytes Percent Auto 15.2 % (20-40); Mean Corpuscular HGB Conc 34.2 g/dl (31.0-36.0); Mean Corpuscular Hemoglobin 33.6 pg (27.0-33.0); Mean Corpuscular Volume 98.5 fL (80.0-98.0); Mean Platelet Volume 12.4 fL (9.4-12.4); Monocytes Absolute Auto 0.6 X10*3/uL (0.1-1.2); Monocytes Percent Auto 7.7 % (2-11); Neutrophils Absolute Auto 6.2 x10*3/uL (2.0-8.3); Neutrophils Percent Auto 75.5 % (45-73); Platelet Count 131 X10*3/uL (160-400); Red Blood Count 4.55 X10*6/uL (4.60-5.80); Red Cell Distribution Width 12.6 % (11.0-16.0); White Blood Count 8.2 X10*3/uL (4.8-10.8)
[2023-09-22 14:57] LABS: Prothrombin Time 24.2 SEC (11.1-13.3)
[2023-09-22 14:58] LABS: Alanine Aminotransferase 19 U/L (0-40); Albumin Level 4.2 g/dL (3.5-5.0); Alkaline Phosphatase 72 U/L (39-117); Anion Gap 10 (12-20); Aspartate Amino Transferase 25 U/L (5-37); Bilirubin Total 1.3 mg/dL (0.0-1.0); Blood Urea Nitrogen 15 mg/dL (9-16); Calcium 9.7 mg/dL (8.4-10.2); Carbon Dioxide 29 mmol/L (22-29); Chloride 106 mmol/L (96-108); Estimated Glomerular Filt Rate > 60; Glucose Random 106 mg/dL (60-115); Potassium 4.7 mmol/L (3.3-5.1); Sodium 140 mmol/L (135-145); Total Protein 7.3 g/dL (6.5-8.0)
[2023-09-22 14:59] LABS: Partial Thromboplastin Time 34.5 SEC (26.0-36.8)
[2023-09-22 15:05] LABS: Troponin-I High Sensitivity 14.8 ng/L (<3.5-35.0)
[2023-09-22 15:20] VITALS: BP 163/90; PULSE 75; TEMP 36.3; O2SAT 97
[2023-09-22 16:56] VITALS: BP 165/92; PULSE 69; RESP 18; TEMP 36.9; O2SAT 98
== END 2023-09-22 16:57 | disposition left against medical advice (07) ==
PROVIDERS: Physician Assistant; Emergency Provider Emergency Medicine; PCP Internal Medicine
DX: S46.912A Strain of unspecified muscle, fascia and tendon at shoulder and upper arm level, left arm, initial encounter (principal); I10 Essential (primary) hypertension; I48.91 Unspecified atrial fibrillation; Z79.01 Long term (current) use of anticoagulants; V89.2XXA Person injured in unspecified motor-vehicle accident, traffic, initial encounter; Y93.9 Activity, unspecified; Y92.410 Unspecified street and highway as the place of occurrence of the external cause; Y99.9 Unspecified external cause status
CPT/HCPCS: 36415; 73030; 80053; 84484; 85025; 85610; 85730; 93005; 99283; 99284

== ENCOUNTER → 2023-09-22 14:03 | Outpatient (BNV) | payer OTHER, SELFPAY | PROVIDERS: Emergency Provider Emergency Medicine; PCP Internal Medicine; Visit Provider Internal Medicine | DX: I48.91 Unspecified atrial fibrillation (principal) | CPT/HCPCS: 93010 ==

== ENCOUNTER 2025-03-23 15:59 | Outpatient (AMB) | payer OTHER, SELFPAY ==
--- NOTE | 2025-03-23 16:02 | A.OFFPC_ITS ---
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 Instructions: Resume on 02/18/20. resume in am Tobacco use date assessed: 03/23/25 Fall risk assessment: No Falls in past year Last assessed Fall Risk: 03/23/25 Dental Screening Dental Screen Date: 03/23/25 Did you have a dental visit in the last 12 months?: No Did you have a dental problem in the last 6 months where you did not have access to dental care?: No Was dental information given to patient?: No (dentures) HPI HPI Comments History of Present Illness Details History of Present Illness The patient is a 65 year old male presenting for a physical and management of chronic conditions, including hypertension, atrial fibrillation, and hypercholesterolemia. He has a history of hypertension, for which he takes lisinopril 20 mg once daily and metoprolol tartrate 150 mg twice a day. He also has a history of atrial fibrillation, managed with diltiazem 300 mg daily and Xarelto once daily. For high cholesterol, he takes atorvastatin 40 mg. The patient reports drinking alcohol four to five times a week, with four to five drinks each time, and acknowledges having had more than six drinks on occasion. His last blood work from the previous year showed good blood counts, but suggested a possible vitamin B12 or folate deficiency and a slightly elevated bilirubin of 1.3. The patient's father had colon cancer, and his mother had congestive heart failure and a triple bypass. He is due for a colonoscopy, with his last one performed about four years ago. He denies any history of smoking. The patient reports no current complaints of nausea, vomiting, chest pain, shortness of breath, headaches, or vision changes. The cause of his atrial fibrillation is unknown, and a previously ordered sleep apnea test was never com pleted. He is currently out of lisinopril and metoprolol and requests refills. Medical History: - Hypertension - Atrial fibrillation - Hypercholesterolemia - Possible vitamin B12 or folate deficie ncy, per labs from last year - Hyperbilirubinemia, per labs from last year Surgical History: - Hernia surgery as an infant Medications: - Lisinopril 20 mg for hypertension - Diltiazem 300 mg for atrial fibrillati on - Xarelto once a day for atrial fibrilla tion - Metoprolol tartrate 150 mg twice a day for hypertension - Atorvastatin 40 mg for high cholestero l Family History: - Father: of colon cancer - Mother: of congestive heart failu re - Other: A parent had a triple bypass - Denies family history of diabetes Diagnostic Results: - Labs from last year: Blood counts were good, potential for vitamin B12 or folate deficiency. - Labs from last year: Bilirubin was sli ghtly high at 1.3. - Labs from 3 years ago: Cholesterol loo ked good. Social History - Smoking: Denies ever smoking. - Alcohol: Reports drinking 4-5 times a week, consuming 4-5 drinks each time, and acknowledges having more than six drinks at times. This has been identified as alcohol abuse. - Housing: Reports having a stable place to stay. Health Maintenance - A referral will be sent for a screenin g colonoscopy due to family history of colon cancer; the patient is due for this screening. - A sleep study will be ordered to scree n for sleep apnea as a potential contributor to his atrial fibrillation. - Baseline comprehensive blood work orde red today to assess blood counts, cholesterol, liver function, and nutritional status. - Counseled on reducing alcohol consumpt ion due to health risks. - Follow-up scheduled in 6 months to rev iew test results and overall health. Patient was informed and verbally consented to the use of an ambient scribe for clinic note documentation during this visit. Vital signs reviewed. Comprehensive history, review of systems, and physical exam completed. Medications, allergies, and problem list reviewed and updated. Counseling provided on nutrition, regular exercise, sleep hygiene, and moderation of alcohol use. Discussed age-appropriate screenings (mammogram, colonoscopy, Pap, bone density) and immunizations (flu, COVID, shingles, Tdap). Screened for depression, fall risk, and home safety; no current concerns. Discussed stress management, dental and vision care, and importance of ongoing preventive follow-up. Routine labs ordered for metabolic and lipid screening. Patient educated on healthy lifestyle and agrees with the plan. [facility] Medical History (Updated 03/23/25 @ 16:24 by Leeroy Anderson MD) Annual physical exam Alcohol abuse Abnormal ECG Elevated cholesterol Atrial fibrillation Hypertension Surgical History (Updated 03/22/25 @ 16:46 by Divine Mann) History of colonoscopy (~02/17/20) History of hernia surgery Social History (System 03/02/21 @ 15:06 by Valarie Ryan) Housing: House Alcohol intake: unknown Patient Tobacco Use Status: Never used Tobacco e-Cigarette/Vaping Use: Never Used Second Hand Smoke Exposure: No service: No Current occupational status: employed Cognitive needs: No Hearing needs: No Vision needs: Yes (Reading glasses) Questionnaire AUDIT C Alcohol Use Questionnaire (AUDIT-C) 1. How often do you have a drink containing alcohol?: 4 or more times a week 2. How many drinks containing alcohol do you have on a typical day when you are drinking?: 3 or 4 3. How often do you have six or more drinks on one occasion?: Monthly Total Score: 7 Review of Systems Narrative Review of Systems - General: Denies current complaints. - GI: Denies nausea and vomiting. Reports normal bowel and bladder function. - Cardiovascular: Denies chest pain. - Respiratory: Denies shortness of breath. - Neurological: Denies headaches. - Eyes: Denies vision changes. - Psychiatric: Denies feeling depressed, sad, or anxious. All systems reviewed & are unremarkable except as reviewed in HPI and above Physical exam (Primary Care) Vital Signs: Last Vital Signs Temp 97.5 F 03/23/25 16:07 Pulse 108 H 03/23/25 16:07 Resp 16 03/23/25 16:07 BP 154/88 H 03/23/25 16:07 Pulse Ox 97 03/23/25 16:07 Oxygen Delivery Method Room Air 03/23/25 16:07 BMI result Body Mass Index 35.4 Tobacco/Smoking Status: Tobacco use Status Tobacco use date assessed 03/23/25 03/23/25 16:10 Patient Tobacco Use Status Never used Tobacco 03/23/25 16:10 e-Cigarette/Vaping Use Never Used 03/23/25 16:10 Narrative Physical Exam General: +Alert and oriented, Well nourished, No acute distress. Eye: Pupils are equal, round and reactive to light, Intact accommodation, Extraocular movements are intact, Normal conjunctiva, Vision unchanged. HENT: Normocephalic, Atraumatic, Tympanic membranes are clear, Normal hearing, Oral mucosa is moist, No pharyngeal erythema, Ear canals patent. Respiratory: Lungs CTA bilaterally, No wheeze, Respirations are non-labored. Cardiovascular: Regular rate, Regular rhythm, S1 auscultated, S2 auscultated, No murmur, Good pulses equal in all extremities, Normal peripheral perfusion, No edema. Gastrointestinal: Soft, Non-tender, Non-distended, Normal bowel sounds, No organomegaly. Musculoskeletal: Normal range of motion, Normal strength, No tenderness, No swelling, No deformity, Normal gait. Integumentary: Warm, Dry, [place], Intact. Neurologic: Alert, Oriented, Normal sensory, Normal motor function, No focal defects, Cranial Nerves II-XII are grossly intact, Normal deep tendon reflexes. Psychiatric: Cooperative, Appropriate mood & affect, Normal judgment. Mood is stable, no depression, sadness, or anxiety reported. Coding Level of Care Code New Pt Level 4 (47213) New Pt Prev Care >65yr (70927) Diagnoses Alcohol abuse F10.10 Paroxysmal atrial fibrillation I48.0 Atrial fibrillation type: paroxysmal Primary hypertension I10 Hypertension type: primary hypertension Elevated cholesterol E78.00 Annual physical exam Z00.00 Comment [id number] Assessment & Plan Assessment & Plan (1) Alcohol abuse: Comment: - The patient reports consuming alcohol 4-5 times per week, with 4-5 drinks each time, and occasional episodes of more than 6 drinks, which is considered alcohol abuse. - Counseled the patient to reduce alcohol intake to no more than 1-2 drinks on 2-3 days a week and to avoid having more than six drinks at a time. - Ordered comprehensive baseline blood work to assess for any adverse effects, such as on his liver function, vitamin B12, or folate levels. Code(s): F10.10 - Alcohol abuse, uncomplicated Category: Social Hx (2) Atrial fibrillation: Comment: - The patient is managed with diltiazem 300 mg and Xarelto once daily. - A sleep study will be ordered to investigate for underlying sleep apnea as a potential cause, as a previously ordered test was not completed. - The patient expressed a desire to establish care with a new creative producer, Dr. Murali Cohen, after being dissatisfied with his previous cardiology group. Code(s): I48.91 - Unspecified atrial fibrillation Category: Medical Qualifiers: Atrial fibrillation type: paroxysmal Qualified Code(s): I48.0 - Paroxysmal atrial fibrillation (3) Hypertension: Comment: - The patient is currently on lisinopril 20 mg and metoprolol tartrate 150 mg twice daily. - Refills for lisinopril and metoprolol have been sent to his pharmacy, as he was out of these medications. - Will obtain baseline labs today. - Plan to follow up in 6 months. Code(s): I10 - Essential (primary) hypertension Category: Medical Qualifiers: Hypertension type: primary hypertension Qualified Code(s): I10 - Essential (primary) hypertension (4) Elevated cholesterol: Comment: - The patient takes atorvastatin 40 mg. - Comprehensive blood work, including a cholesterol panel, will be drawn today to get updated baseline values, as his last cholesterol check was three years ago. - Follow up in 6 months to review lab results and adjust management if necessary. Code(s): E78.00 - Pure hypercholesterolemia, unspecified Category: Medical (5) Annual physical exam: Comment: Health Maintenance: - A referral will be sent for a screening colonoscopy due to family history of colon cancer; the patient is due for this screening. - A sleep study will be ordered to screen for sleep apnea as a potential contributor to his atrial fibrillation. - Baseline comprehensive blood work ordered today to assess blood counts, cholesterol, liver function, and nutritional status. - Counseled on reducing alcohol consumption due to health risks. - Follow-up scheduled in 6 months to review test results and overall health. Patient was informed and verbally consented to the use of an ambient scribe for clinic note documentation during this visit. Vital signs reviewed. Comprehensive history, review of systems, and physical exam completed. Medications, allergies, and problem list reviewed and updated. Counseling provided on nutrition, regular exercise, sleep hygiene, and moderation of alcohol use. Discussed age-appropriate screenings (mammogram, colonoscopy, Pap, bone density) and immunizations (flu, COVID, shingles, Tdap). Screened for depression, fall risk, and home safety; no current concerns. Discussed stress management, dental and vision care, and importance of ongoing preventive follow-up. Routine labs ordered for metabolic and lipid screening. Patient educated on healthy lifestyle and agrees with the plan. Code(s): Z00.00 - Encounter for general adult medical examination without abnormal findings Category: Medical Plan I discussed with the patient that his current level of alcohol consumption constitutes alcohol abuse and is detrimental to his health. I advised him to cut down his intake to 2-3 days a week with no more than 1-2 drinks per occasion, emphasizing that this is for his safety. We will be getting a full set of baseline blood work today, and I informed him that I would call if any results are abnormal or require changes to his care. I explained that he is due for a colonoscopy and that my office would send a referral to Dr. Aleman's clinic. We also discussed ordering a sleep study to investigate his atrial fibrillation, and I told him that someone would reach out to schedule that. I refilled his lisinopril and metoprolol. We scheduled a follow-up appointment in six months to review his progress and test results. Orders: Orders Comprehensive Met. Panel Today Z00.00 - Encounter for general adult medical examination without abnormal findings Hemoglobin A1c Today Z00.00 - Encounter for general adult medical examination without abnormal findings Hepatitis A,B,C Profile Today Z00.00 - Encounter for general adult medical examination without abnormal findings HIV Ab/Ag Today Z00.00 - Encounter for general adult medical examination without abnormal findings Lipid Panel Today Z00.00 - Encounter for general adult medical examination without abnormal findings TSH reflex Free T4 Today Z00.00 - Encounter for general adult medical examination without abnormal findings Vitamin D 25-OH Total Today Z00.00 - Encounter for general adult medical examination without abnormal findings RT PSG in-lab sleep study Today I48.91 - Unspecified atrial fibrillation Complete Blood Count Auto Diff Today Z00.00 - Encounter for general adult med ical examination without abnormal findings Microalbumin, Random (w Creat) Today Z00.00 - Encounter for general adult medical examination without abnormal findings Syphilis Screen Today Z00.00 - Encounter for general adult medical examination without abnormal findings Referrals Gastroenterology Referral Z80.0 - Family history of malignant neoplasm of digestive organs Medications: Changed From metoprolol tartrate 75 mg PO BID To metoprolol tartrate 75 mg (1.5 x 50 mg) PO BID 270 tabs 3RF 90 days From lisinopril 1 tab PO DAILY To lisinopril 20 mg PO DAILY 90 tabs 3RF Patient Instructions: - It is very important for your health that you cut down on alcohol. Please limit drinking to 2-3 days per week, and have no more than 1-2 drinks on those days. - Please go to the hospital lab today to have your blood drawn. - You are due for a colonoscopy. Someone from Dr. Aleman's clinic will contact you to schedule it. - We are ordering a sleep study for you. Someone will call you to get that s cheduled. - Your prescriptions for lisinopril and metoprolol have been refilled at the [facility] on [facility]. - Please make a follow-up appointment for six months from now at the [facility] residential driver. - I will call you if any of your blood work results are abnormal or require changes in your treatment.
[2025-03-23 16:07] VITALS: BP 154/88; PULSE 108; RESP 16; TEMP 36.4; O2SAT 97; BMI 35.4
--- OUTSIDE RECORDS SUMMARY | 2025-03-23 22:44 | XMS_ITS | Patient Health Record ---
Author Organization [facility] Address [address] [place] [address] Care Team Providers Care Coronary Clinical Specialist Name Role Phone Michelle (RETIRED) Jez ROMO Primary Care Provide r Matty Hahn Jr Unavailable [phone] Reason For Referral No Information Medications Medication SIG (Take, Route, Frequency, Duration) Notes Start Date End Date Status MiraLax (colon prep) 8.3 ounce ((238) grams mixed with Gatorade or Crystal Light orally begin at 5:00 p.m. the day before the procedure; Duration: 1 day 01/14/2020 Active Lisinopril 20 MG Tablet TAKE 1 TABLET BY MOUTH EVERY DAY Oral; Duration: 90 Active Atorvastatin Calcium 40 MG Tablet TAKE 1 TABLET BY MOUTH EVERY DAY Oral; Duration: 90 Active Metoprolol Tartrate 100 MG Tablet TAKE 1 TABLET BY MOUTH TWICE A DAY Oral; Duration: 90 Active Xarelto 20 MG Tablet TAKE 1 TABLET BY TX UT EVERY DAY WITH FOOD Oral; Duration: 90 Active dilTIAZem HCl ER Beads 300 MG Capsule Extended Release 24 Hour TAKE 1 CAPSULE BY MOUTH EVERY DAY Oral; Duration: 90 Active Immunizations Vaccine Route Administration Date Status Comme nts Influenza Unknown 01/14/2020 Refused Social History Tobacco Use: Social History Observation Description Date Details (start date - stop date) Never Smoker NA - NA Social History Drugs/Alcohol: Social Info Question Answer Notes Alcohol Screen Did you have a drink containing alcohol in the past year? Yes How often did you have a drink containing alcohol in the past year? 4 or more times a week (4 points) How many drinks did you have on a typical day when you were drinking in the past year? 3 or 4 drinks (1 point) How often did you have 6 or more drinks on one occasion in the past year? 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) use of anticoagulants (Z79.01) Active confirmed Problem Pre-procedure evaluation check (267434879) Encounter for other preprocedural examination (Z01.818) Active confirmed Plan Of Treatment Future Test Test Name Order Date COLONOSCOPY 01/14/2020 Insurance Providers Payer Name Payer Address Payer Phone Subscriber Number Group Number Insured Name Patient Relationship to Insured Coverage Start Date Coverage End Date [facility] [employer] [address] [place] [address] [id number] VENKAT FARRAR Self - patient is the insured Medical (General) History Medical History History ICD Code hypertension Atrial fibrillation elevated cholesterol Surgical History Surgery Date(Month/Year) HERNIA infant
== END 2025-03-23 16:23 | disposition home or self-care (01) ==
LOC: HO.HMCHD 16:00
PROVIDERS: PCP Student in an Organized Health Care Education/Training Program; Visit Provider Student in an Organized Health Care Education/Training Program
DX: Z00.00 Encounter for general adult medical examination without abnormal findings (principal); F10.10 Alcohol abuse, uncomplicated; I48.0 Paroxysmal atrial fibrillation; I10 Essential (primary) hypertension; E78.00 Pure hypercholesterolemia, unspecified

== ENCOUNTER 2025-03-23 15:59 | Outpatient (REF) | payer OTHER, SELFPAY ==
[2025-03-23 16:39] LABS: MANUAL DIFF FLAG NO
[2025-03-23 17:05] LABS: Hematocrit 50.8 % (42.0-52.0); Hemoglobin 17.0 g/dl (14.0-18.0); Imm Gran Abs Auto 0.01 X10*3/uL (0.00-0.03); Imm Gran Pct Auto 0.1 % (0.0-0.4); Lymphocytes Absolute Auto 1.7 X10*3/uL (1.2-4.9); Mean Corpuscular HGB Conc 33.5 g/dl (31.0-36.0); Mean Corpuscular Hemoglobin 33.1 pg (27.0-33.0); Mean Corpuscular Volume 99.0 fL (80.0-98.0); NRBC Abs Auto 0.000 X10*3/uL (0.0-0.012); NRBC Pct Auto 0.0 /100WBC (0.0-0.2); Platelet Count 188 X10*3/uL (160-400); Red Blood Count 5.13 X10*6/uL (4.60-5.80); White Blood Count 7.0 X10*3/uL (4.8-10.8)
[2025-03-23 18:01] LABS: Alanine Aminotransferase 23 U/L (0-40); Albumin Level 4.7 g/dL (3.5-5.0); Alkaline Phosphatase 78 U/L (39-117); Anion Gap 13 (12-20); Aspartate Amino Transferase 35 U/L (5-37); Blood Urea Nitrogen 10 mg/dL (9-16); Calcium 9.8 mg/dL (8.4-10.2); Carbon Dioxide 29 mmol/L (22-29); Chloride 105 mmol/L (96-108); Cholesterol 226 mg/dL (<200); Estimated Glomerular Filt Rate > 60; HDL Cholesterol 60 mg/dL (>40); Potassium 4.4 mmol/L (3.3-5.1); Sodium 143 mmol/L (135-145); Total Protein 7.4 g/dL (6.5-8.0); Triglycerides 103 mg/dL (<150)
[2025-03-23 18:42] LABS: Microalbum/Creatinine Ratio Ur 58.2 ug/mg cr (<30)
[2025-03-24 06:10] LABS: Syphilis Screen Nonreactive (Nonreactive)
[2025-03-24 07:53] LABS: HBS Num1 0.00 mIU/mL (0-7.99); HBc Num1 0.06 S/CO (0.00-0.79); HBsAGNum1 0.32 S/CO (0.00-0.99); HIV Num 1 0.05 S/CO (0.00-0.99); Hepatitis A Antibody IgM 0.20 Index (0-0.79); Hepatitis B Surface Antigen Negative (Negative); ~HepC Num1 0.16 S/CO (0.00-0.79); ~Hepatitis A Antibody IgM Nonreactive (Nonreactive); ~Hepatitis B Surface Antibody NONREACTIVE (Nonreactive); ~Hepatitis C Antibody Nonreactive (Nonreactive)
== END 2025-03-23 16:00 | disposition home or self-care (01) ==
LOC: HO.LAB 15:59
PROVIDERS: PCP Student in an Organized Health Care Education/Training Program; Visit Provider Student in an Organized Health Care Education/Training Program
DX: Z00.00 Encounter for general adult medical examination without abnormal findings (principal); E78.00 Pure hypercholesterolemia, unspecified; I48.0 Paroxysmal atrial fibrillation
CPT/HCPCS: 36415; 80053; 80061; 82043; 82306; 82570; 83036; 84443; 85025; 86704; 86706; 86709; 86780; 86803; 87340; 87389

== ENCOUNTER 2025-04-14 18:01 | Emergency (ER) | payer OTHER, SELFPAY ==
[2025-04-14 18:19] VITALS: BP 178/80; PULSE 102; RESP 18; TEMP 36.1; O2SAT 97; BMI 34.8
--- NOTE | 2025-04-14 18:19 | ED_ITS ---
History of Present Illness General Chief Complaint: Epistaxis Stated Complaint: bloody nose Time Seen by Provider: 04/14/25 20:24 Related Data Home Medications ?Medication ?Instructions ?Recorded ?Confirmed atorvastatin 40 mg tablet 1 tab PO DAILY 02/16/2001/07 rivaroxaban 20 mg tablet (Xarelto) 1 tab PO DAILY 07/0203/23/25 Held on 02/17/20. Instructions: Resume on 02/18/20. resume in am diltiazem HCl 300 mg capsule,24 300 mg PO DAILY 03/23/25 hr,extended release Previous Rx's ?Medication ?Instructions ?Recorded cholecalciferol (vitamin D3) 1,250 1,250 mcg PO QWEEK 12 weeks #12 03/23/25 mcg (50,000 unit) tablet tabs lisinopril 20 mg tablet 20 mg PO DAILY #90 tabs 01/07 metoprolol tartrate 50 mg tablet 75 mg (1.5 x 50 mg) P O BID 90 days 03/23/25 #270 tabs metoprolol tartrate 50 mg tablet 150 mg (3 x 50 mg) PO Q12H 30 days 04/14/25 #180 tabs oxymetazoline 0.05 % nasal spray 2 spray intranasal Q1 2H PRN 04/14/25 (Afrin (oxymetazoline)) epistaxis 4 days #22 mL Allergies Allergy/AdvReac Type Severity Reaction Status Date / Time No Known Allergies Allergy Verified 04/14/25 18:21 [facility] Past Medical History Medical History (Updated 04/14/25 @ 21:27 by Debbie Garcia DO) Annual physical exam Alcohol abuse Abnormal ECG Elevated cholesterol Atrial fibrillation Hypertension Surgical History (Updated 03/22/25 @ 16:46 by Divine Mann) History of colonoscopy (~02/17/20) History of hernia surgery Social History Social History (System 03/02/21 @ 15:06 by Valarie Ryan) Housing: House Alcohol intake: unknown Patient Tobacco Use Status: Never used Tobacco e-Cigarette/Vaping Use: Never Used Second Hand Smoke Exposure: No Advance Directives: No Advance Directives Information Provided: Yes service: No Current occupational status: employed Cognitive needs: No Hearing needs: No Vision needs: Yes (Reading glasses) Physical Exam 2 Vital Signs: Vital Signs: Last Vital Signs Temp 98.5 F 04/14/25 21:32 Pulse 89 04/14/25 21:32 Resp 18 04/14/25 21:32 BP 151/83 H 04/14/25 21:32 Pulse Ox 96 04/14/25 21:32 O2 Del Method Room Air 04/14/25 21:32 BMI result Body Mass Index 34.8 Course Course Course Narrative: This is a Rapid Medical Exam performed in triage by Anna Whitaker PA-C. Full HPI, ROS and PE to be performed by primary ED provider. 65-year-old male with a past medical history ETOH abuse, HTN, HLD, AFib on Xarelto presenting to the ED c/o epistaxsis x today - intermittently x6hrs. Admits has been blowing his nose a lot today. denies lightheadedness/dizziness PE: No active epistaxsis appreciated - scant discharge on tissue, oropharynx wnl Plan: Labs Medical Decision Making Lab Data 04/14/25 18:31 04/14/25 18:31 Labs: Lab Results 04/14/25 Range/Units 18:31 WBC 6.2 (4.8-10.8) X10*3/uL RBC 4.93 (4.60-5.80) X10*6/uL Hgb 16.7 (14.0-18.0) g/dl Hct 48.3 (42.0-52.0) % MCV 98.0 (80.0-98.0) fL MCH 33.9 H (27.0-33.0) pg MCHC 34.6 (31.0-36.0) g/dl RDW 13.1 (11.0-16.0) % Plt Count 162 (160-400) X10*3/uL MPV 11.2 (9.4-12.4) fL Immature Gran % (Auto) 0.3 (0.0-0.4) % Neut % (Auto) 63.5 (45-73) % Lymph % (Auto) 22.9 (20-40) % Meigs % (Auto) 12.0 H (2-11) % Eos % (Auto) 1.1 (0-4) % Baso % (Auto) 0.2 (0-2) % Lymph # (Auto) 1.4 (1.2-4.9) X10*3/uL [place]igs # (Auto) 0.8 (0.1-1.2) X10*3/uL Eos # (Auto) 0.1 (0.0-0.4) X10*3/uL Baso # (Auto) 0.0 (0.0-0.2) X10*3/uL Abs Immat Gran (auto) 0.02 (0.00-0.03) X10*3/uL Absolute Neuts (auto) 4.0 (2.0-8.3) x10*3/uL Absolute Nucleated RBC 0.000 (0.0-0.012) X10*3/uL Nucleated RBC % (auto) 0.0 (0.0-0.2) /100WBC Sodium 139 (135-145) mmol/L Potassium 3.9 (3.3-5.1) mmol/L Chloride 102 (96-108) mmol/L Carbon Dioxide 26 (22-29) mmol/L Anion Gap 15 (12-20) BUN 23 H (9-16) mg/dL Creatinine 1.52 H (0.5-1.4) mg/dL Estim Creat Clear Calc 54.8 Estimated GFR 46 Random Glucose 115 (60-115) mg/dL Calcium 10.3 H (8.4-10.2) mg/dL Discharge Plan Discharge Clinical Impression: Epistaxis, Advance care planning Patient Disposition: Home, Self-Care Instructions: Nosebleed (ED) Additional Instructions: Call your PCP for refill of your BP medications. Prescriptions: New oxymetazoline [Afrin (oxymetazoline)] 0.05 % spray,non-aerosol 2 spray intranasal Q12H PRN (Reason: epistaxis) 4 Days Qty: 22 0RF metoprolol tartrate 50 mg tablet 150 mg PO Q12H 30 Days Qty: 180 0RF No Action cholecalciferol (vitamin D3) 1,250 mcg (50,000 unit) tablet 1,250 mcg PO QWEEK 84 Days Qty: 12 0RF atorvastatin 40 mg tablet 1 tab PO DAILY Xarelto 20 mg tablet 1 tab PO DAILY diltiazem HCl 300 mg capsule,extended release 24 hr 300 mg PO DAILY lisinopril 20 mg tablet 20 mg PO DAILY Qty: 90 3RF metoprolol tartrate 50 mg tablet 75 mg PO BID 90 Days Qty: 270 3RF Interventions: ED Discharge Assessment Last Done: 04/14/25 21:32 Discharge Date/Time: 04/14/25 21:33 Print Language: Georgian
[2025-04-14 18:38] LABS: MANUAL DIFF FLAG NO
[2025-04-14 18:51] LABS: Hematocrit 48.3 % (42.0-52.0); Hemoglobin 16.7 g/dl (14.0-18.0); Imm Gran Abs Auto 0.02 X10*3/uL (0.00-0.03); Imm Gran Pct Auto 0.3 % (0.0-0.4); Lymphocytes Absolute Auto 1.4 X10*3/uL (1.2-4.9); Mean Corpuscular HGB Conc 34.6 g/dl (31.0-36.0); Mean Corpuscular Hemoglobin 33.9 pg (27.0-33.0); Mean Corpuscular Volume 98.0 fL (80.0-98.0); NRBC Abs Auto 0.000 X10*3/uL (0.0-0.012); NRBC Pct Auto 0.0 /100WBC (0.0-0.2); Platelet Count 162 X10*3/uL (160-400); Red Blood Count 4.93 X10*6/uL (4.60-5.80); White Blood Count 6.2 X10*3/uL (4.8-10.8)
[2025-04-14 19:26] LABS: Anion Gap 15 (12-20); Blood Urea Nitrogen 23 mg/dL (9-16); Carbon Dioxide 26 mmol/L (22-29); Chloride 102 mmol/L (96-108); Creatinine Clr Calc Pharmacy 54.8; Estimated Glomerular Filt Rate 46; Potassium 3.9 mmol/L (3.3-5.1); Sodium 139 mmol/L (135-145)
[2025-04-14 19:50] LABS: Calcium 10.3 mg/dL (8.4-10.2)
--- OUTSIDE RECORDS SUMMARY | 2025-04-14 20:27 | XMS_ITS | Patient Health Record ---
Author Organization [facility] Address [address] [place] [address] Care Team Providers Care Drug Clerk Name Role Phone HELDER WEINER M.D. 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 [address] [place] [address] [id number] VENKAT FARRAR Self - patient is the insured Medical (General) History Medical History History ICD Code hypertension Atrial fibrillation elevated cholesterol Surgical History Surgery Date(Month/Year) HERNIA infant
[2025-04-14 20:35] VITALS: BP 151/83; PULSE 89; RESP 18; TEMP 36.9; O2SAT 96
--- NOTE | 2025-04-14 21:30 | ED_ITS ---
[facility] - General Adult General Chief complaint: Epistaxis Stated complaint: bloody nose Time Seen by Provider: 04/14/25 20:24 Source: patient Mode of arrival: ambulatory Limitations: no limitations History of Present Illness ED Provider: Dr. Garcia [facility] narrative: This is a 65-year-old male history of AFib on Xarelto , hypertension presented hospital today for evaluation of intermittent epistaxis. Patient is also requesting advanced care planning. No longer nosebleed. Patient stated he applied pressure on it. However it was difficult to stopped. Patient stated that he is interested in filling out a most form. His wishes is trial of ventilation and DNR. Related Data Home Medications ?Medication ?Instructions ?Recorded ?Confirmed atorvastatin 40 mg tablet 1 tab PO DAILY 02/16/2001/07 rivaroxaban 20 mg tablet (Xarelto) 1 tab PO DAILY 07/0203/23/25 Held on 02/17/20. Instructions: Resume on 02/18/20. resume in am diltiazem HCl 300 mg capsule,24 300 mg PO DAILY 03/23/25 hr,extended release Previous Rx's ?Medication ?Instructions ?Recorded cholecalciferol (vitamin D3) 1,250 1,250 mcg PO QWEEK 12 weeks #12 03/23/25 mcg (50,000 unit) tablet tabs lisinopril 20 mg tablet 20 mg PO DAILY #90 tabs 01/07 metoprolol tartrate 50 mg tablet 75 mg (1.5 x 50 mg) P O BID 90 days 03/23/25 #270 tabs metoprolol tartrate 50 mg tablet 150 mg (3 x 50 mg) PO Q12H 30 days 04/14/25 #180 tabs oxymetazoline 0.05 % nasal spray 2 spray intranasal Q1 2H PRN 04/14/25 (Afrin (oxymetazoline)) epistaxis 4 days #22 mL Allergies Allergy/AdvReac Type Severity Reaction Status Date / Time No Known Allergies Allergy Verified 04/14/25 18:21 Review of Systems 2 Review of Systems: Pertinent review of systems as mentioned in HPI. All other system otherwise negative. [facility] Past Medical History [facility] Narrative: Medical history as mentioned in [facility] Medical History (Updated 04/14/25 @ 21:27 by Debbie Garcia DO) Annual physical exam Alcohol abuse Abnormal ECG Elevated cholesterol Atrial fibrillation Hypertension Surgical History (Updated 03/22/25 @ 16:46 by Divine Mann) History of colonoscopy (~02/17/20) History of hernia surgery Social History Social History (System 03/02/21 @ 15:06 by Valarie Ryan) Housing: House Alcohol intake: unknown Patient Tobacco Use Status: Never used Tobacco e-Cigarette/Vaping Use: Never Used Second Hand Smoke Exposure: No Advance Directives: No Advance Directives Information Provided: Yes service: No Current occupational status: employed Cognitive needs: No Hearing needs: No Vision needs: Yes (Reading glasses) Physical Exam ED Exam Exam: General: Pleasant, no distress, interacting appropriately Head: Normacephalic, atraumatic ENT: No sign of epistaxis Skin: Warm and dry Psychiatric: Appropriate mood and thoughts Vital Signs: Vital Signs - 24 hr 04/14/25 18:19 04/14/25 20:35 Temperature 97 F 98.5 F Pulse Rate 102 H 89 Respiratory Rate 18 18 Blood Pressure 178/80 H 151/83 H Pulse Oximetry 97 96 Oxygen Delivery Method Room Air Room Air BMI result Body Mass Index 34.8 Medical Decision Making Medical Decision Making MDM Narrative: This is a 65-year-old male presented hospital today for evaluation of epistaxis and advanced care planning. Has been over 15 minutes discussing advanced care planning with the patient. Patient's or prefer DNR with a trial of ventilation. He does not want prolonged ventilation. Trial artificial nutrition and IV fluid hydration patient stated that if he is intubated for longer than 10 days. He will prefer to transition to comfort measures only. Patient is of sound mind and has capacity when making decision. Patient would like to designate his son as his healthcare proxy. He will plan to discuss this privately with his son. We completed a MOLST form out together. Reflecting his wishes. Patient is not actively having any nosebleed. We will plan to prescribe patient some Afrin to take. Patient will be discharged. I did refill his home dose of metoprolol. Patient states he has hard time getting a hold of his primary care doctor. Differential Diagnosis Differential Diagnoses: The differential diagnosis associated with the presentation includes Epistaxis, anemia, advanced care planning Lab Data 04/14/25 18:31 04/14/25 18:31 Labs: Lab Results 04/14/25 Range/Units 18:31 WBC 6.2 (4.8-10.8) X10*3/uL RBC 4.93 (4.60-5.80) X10*6/uL Hgb 16.7 (14.0-18.0) g/dl Hct 48.3 (42.0-52.0) % MCV 98.0 (80.0-98.0) fL MCH 33.9 H (27.0-33.0) pg MCHC 34.6 (31.0-36.0) g/dl RDW 13.1 (11.0-16.0) % Plt Count 162 (160-400) X10*3/uL MPV 11.2 (9.4-12.4) fL Immature Gran % (Auto) 0.3 (0.0-0.4) % Neut % (Auto) 63.5 (45-73) % Lymph % (Auto) 22.9 (20-40) % [place] % (Auto) 12.0 H (2-11) % Eos % (Auto) 1.1 (0-4) % Baso % (Auto) 0.2 (0-2) % Lymph # (Auto) 1.4 (1.2-4.9) X10*3/uL [place] # (Auto) 0.8 (0.1-1.2) X10*3/uL Eos # (Auto) 0.1 (0.0-0.4) X10*3/uL Baso # (Auto) 0.0 (0.0-0.2) X10*3/uL Abs Immat Gran (auto) 0.02 (0.00-0.03) X10*3/uL Absolute Neuts (auto) 4.0 (2.0-8.3) x10*3/uL Absolute Nucleated RBC 0.000 (0.0-0.012) X10*3/uL Nucleated RBC % (auto) 0.0 (0.0-0.2) /100WBC Sodium 139 (135-145) mmol/L Potassium 3.9 (3.3-5.1) mmol/L Chloride 102 (96-108) mmol/L Carbon Dioxide 26 (22-29) mmol/L Anion Gap 15 (12-20) BUN 23 H (9-16) mg/dL Creatinine 1.52 H (0.5-1.4) mg/dL Estim Creat Clear Calc 54.8 Estimated GFR 46 Random Glucose 115 (60-115) mg/dL Calcium 10.3 H (8.4-10.2) mg/dL Discharge Plan Discharge Clinical Impression: Epistaxis, Advance care planning Patient Disposition: Home, Self-Care Instructions: Nosebleed (ED) Additional Instructions: Call your PCP for refill of your BP medications. Prescriptions: New oxymetazoline [Afrin (oxymetazoline)] 0.05 % spray,non-aerosol 2 spray intranasal Q12H PRN (Reason: epistaxis) 4 Days Qty: 22 0RF metoprolol tartrate 50 mg tablet 150 mg PO Q12H 30 Days Qty: 180 0RF No Action cholecalciferol (vitamin D3) 1,250 mcg (50,000 unit) tablet 1,250 mcg PO QWEEK 84 Days Qty: 12 0RF atorvastatin 40 mg tablet 1 tab PO DAILY Xarelto 20 mg tablet 1 tab PO DAILY diltiazem HCl 300 mg capsule,extended release 24 hr 300 mg PO DAILY lisinopril 20 mg tablet 20 mg PO DAILY Qty: 90 3RF metoprolol tartrate 50 mg tablet 75 mg PO BID 90 Days Qty: 270 3RF Interventions: ED Discharge Assessment Last Done: 04/14/25 21:32 Print Language: Libyan
[2025-04-14 21:32] VITALS: BP 151/83; PULSE 89; RESP 18; TEMP 36.9; O2SAT 96
== END 2025-04-14 21:33 | disposition home or self-care (01) ==
PROVIDERS: Physician Assistant; Emergency Provider Student in an Organized Health Care Education/Training Program; PCP Student in an Organized Health Care Education/Training Program
DX: R04.0 Epistaxis (principal); I48.91 Unspecified atrial fibrillation; Z79.01 Long term (current) use of anticoagulants; I10 Essential (primary) hypertension
CPT/HCPCS: 36415; 80048; 85025; 99283